=== PATIENT | male | born 1970 | race Caucasian/White ===

== ENCOUNTER 2021-10-07 10:58 | Day surgery (SDC) | payer OTHER ==
[~2021-10-07] VITALS: Ht 188 cm; Wt 105.8 kg
[2021-10-07 12:02] VITALS: BP 132/94; PULSE 59; TEMP 98.3
[2021-10-07 13:40] VITALS: BP 103/67; PULSE 52; TEMP 97.4
--- NOTE | 2021-10-07 13:40 | NUR ---
PT TO TRIMBLE 6 FROM PACU. RECEIVED REPORT FROM LIANA CHPAA. VS OBTAINED. PT STATES PAIN IS TOLERABLE. CALL LIGHT WITHIN REACH. PT TOLERATING ICE CHIPS. WILL CONTINUE TO MONITOR PT.
[2021-10-07 13:55] VITALS: BP 106/73; PULSE 55
--- NOTE | 2021-10-07 13:55 | NUR ---
PT CONTINUES TO REST COMFORTABLY. DENIES ANY NEEDS AT THIS TIME. WILL CONTINUE TO MONITOR.
[2021-10-07] MEDS ORDERED: NORCO 325 MG-51 TAB PO (13:58)
[2021-10-07 14:10] VITALS: BP 110/69; PULSE 53
--- NOTE | 2021-10-07 14:10 | NUR ---
PT TOLERATING SPRITE AND CHOCOLATE PUDDING. DENIES ANY OTHER NEEDS. WILL COTNINUE TO MONITOR.
[2021-10-07 14:25] VITALS: BP 108/72; PULSE 54
--- NOTE | 2021-10-07 14:25 | NUR ---
PT CONTINUES TO STATE HIS PAIN IS TOLERABLE. STATES HE IS READY FOR DISCHARGE.
--- NOTE | 2021-10-07 14:30 | NUR ---
IV DC'D. PT TOLERATED WELL.
--- NOTE | 2021-10-07 14:45 | NUR ---
DISCHARGE EDUCATION COMPLETED WITH PT. VERBALIZED UNDERSTANDING OF HOME AND FOLLOW UP CARE. ALL QUESTIONS ANSWERED. DISCHARGE PAPERWORK GIVEN TO PT.
--- NOTE | 2021-10-07 15:05 | NUR ---
PT OFF UNIT PER WHEELCHAIR. PT DISCHARGE TO HOME WITH FRIEND JET PER PERSONAL VEHICLE.
== END 2021-10-07 15:05 | disposition home or self-care (01) ==
LOC: SDCO 10:58
DX: K42.0 Umbilical hernia with obstruction, without gangrene (principal)
CPT/HCPCS: C1781; J0690; J1100; J1885; J2405; J2704; J3010; J7120